=== PATIENT | male | born 1965 | race Caucasian/White ===

== ENCOUNTER 2018-06-27 12:42 | Day surgery (SDC) | payer BC ==
[~2018-06-27] VITALS: Ht 198.1 cm; Wt 118.4 kg
[~2018-06-27 12:42] MED LIST: OLME20 PO; TRAM50 PO
== END 2018-06-27 14:51 | disposition home or self-care (01) ==
LOC: ORSCSDS 12:42
PROVIDERS: Surgery
PROC: 0DJD8ZZ Inspection of Lower Intestinal Tract, Via Natural or Artificial Opening Endoscopic (ICD-10-PCS; principal; 2018-06-27 14:15)
DX: Z12.11 Encounter for screening for malignant neoplasm of colon (principal); Z86.010 Personal history of colon polyps; I10 Essential (primary) hypertension; F17.210 Nicotine dependence, cigarettes, uncomplicated; E66.9 Obesity, unspecified; Z68.30 Body mass index [BMI] 30.0-30.9, adult

== ENCOUNTER 2018-07-10 08:24 | Day surgery (SDC) | payer BC ==
[~2018-07-10] VITALS: Ht 198.1 cm; Wt 120.2 kg
[2018-07-10] MEDS ORDERED: LOSA25 PO (09:52)
== END 2018-07-10 22:46 | disposition home or self-care (01) ==
LOC: ORSCMMR 08:24 → ORD 10:00 → ORSCMMR 10:00
PROVIDERS: Surgery
PROC: 0WUF0JZ Supplement Abdominal Wall with Synthetic Substitute, Open Approach (ICD-10-PCS; principal; 2018-07-10 10:00)
DX: K42.0 Umbilical hernia with obstruction, without gangrene (principal); I10 Essential (primary) hypertension; Z79.899 Other long term (current) drug therapy
CPT/HCPCS: C1781; J0690; J1100; J1885; J2250; J2405; J3010; J7120